=== PATIENT | male | born 1990 | race African-American/Black ===

== ENCOUNTER 2018-10-28 09:31 | Emergency (ER) | payer SELFPAY ==
[~2018-10-28] VITALS: Ht 182.9 cm; Wt 70.3 kg
[2018-10-28 09:41] VITALS: BP 122/76
[2018-10-28] MEDS ORDERED: IBUPROFEN600 MG ORAL (10:20)
--- NOTE | 2018-10-28 10:20 | Emergency Room Report ---
History of Present Illness General Chief Complaint: Pain Source: Patient Present Illness HPI 28-year-old male presents with pain to inside of right foot medial aspect of arch after skateboarding accident where he landed awkwardly about 2 weeks ago. Patient not sure exactly how he landed but missed the board, foot impacted the ground. Initially had a lot of swelling, states it that is resolved but he feels like "the bones not healing right". Has not gone to another ER seeing another doctor for evaluation since. Has not been icing or taking any pain medication either. Patient History Past Medical History: none Past Surgical History: none Pertinent Family History: none Social History: Denies: smoking, alcohol use, drug use Immunizations: UTD Reviewed Nursing Documentation: PMH: Agreed; PSxH: Agreed Nursing Documentation-PMH Past Medical History: No History, Except For Hx Asthma: Yes Review of Systems All Other Systems: negative except mentioned in HPI Physical Exam Vital Signs Date Time Temp Pulse Resp B/P (MAP) Pulse Ox O2 Delivery O2 Flow Rate FiO2 10/28/18 09:41 98.4 83 18 122/76 98 Room Air Sp02 EP Interpretation: reviewed, normal General Appearance: normal inspection, well appearing, no apparent distress, alert, GCS 15, non-toxic Head: normocephalic, atraumatic Eyes: bilateral eye PERRL, bilateral eye EOMI ENT: normal ENT inspection, hearing grossly normal, normal pharynx, no angioedema, normal voice, TMs + canals normal, uvula midline, moist mucus membranes Neck: normal inspection, full range of motion, supple, thyroid normal, no meningismus, no bony tend Respiratory: normal inspection, lungs clear, normal breath sounds, no rhonchi, no respiratory distress, no retraction, no accessory muscle use, no wheezing, speaking full sentences Cardiovascular #1: regular rate, rhythm, no edema, no JVD, normal capillary refill Gastrointestinal: normal inspection, normal bowel sounds, non tender, soft, no mass, no peritonitis, non-distended, no guarding, no hernia, no pulsatile mass Genitourinary: no CVA tenderness Musculoskeletal: normal inspection, back normal, normal range of motion, no calf tenderness, pelvis stable, Sotero's Sign negative, other - Right foot: no obvious swelling or deformity. mild ttp to medial aspect of arch and also to dorsal aspect near talus Neurologic: normal inspection, alert, oriented x3, responsive, tobacco sizer III-XII nml as tested, motor strength/tone normal, cerebellar normal, normal gait, speech normal Psychiatric: normal inspection, judgement/insight normal, mood/affect normal, no suicidal/homicidal ideation, no delusions Skin: normal inspection, normal color, no rash Lymphatic: normal inspection, no adenopathy Medical Decision Making Diagnostic Impression: Primary Impression: Right foot sprain Qualified Codes: S93.601A - Unspecified sprain of right foot, initial encounter ER Course VSS, afebrile Right foot pain from skateboarding accident No obvious injury on my review of xray Reassured patient Discussed Xray Recommended RICE, motrin, PMD followup or Ortho as needed DC home Other X-Ray Diagnostic Results Other X-Ray Diagnostic Results : X-Ray ordered: right foot # of Views/Limited Vs Complete: 3 View Indication: Pain EP Interpretation: Yes Interpretation: no dislocation, no soft tissue swelling, no fractures Impression: No acute disease Electronically Signed by: Dr Alma Rosa Oreilly MD Last Vital Signs Date Time Temp Pulse Resp B/P (MAP) Pulse Ox O2 Delivery O2 Flow Rate FiO2 10/28/18 09:41 98.4 83 18 122/76 98 Room Air Status: improved Disposition: HOME, SELF-CARE Referrals: NOT CHOSEN JOSE M/,REFERRING (PCP) ALMA ROSA OREILLY M.D. Oct 28, 2018 10:20
[2018-10-28 10:29] VITALS: BP 120/65
--- NOTE | 2018-10-28 11:04 | Diagnostic Imaging Report ---
Indication: Foot Pain Comparison: None Findings: 3 views of the right foot were obtained. No acute fractures, malalignment, erosions or periostitis are identified. Soft tissues are unremarkable. Impression: No acute findings.
== END 2018-10-28 10:30 | disposition home or self-care (01) ==
LOC: EMR 10:05
DX: S93.601A Unspecified sprain of right foot, initial encounter (principal); Y93.51 Activity, roller skating (inline) and skateboarding; Y92.89 Other specified places as the place of occurrence of the external cause; J45.909 Unspecified asthma, uncomplicated
CPT/HCPCS: 99283